=== PATIENT | female | born 1965 | race African-American/Black ===

== ENCOUNTER 2017-03-11 06:31 | Observation (INO) | payer OTHER ==
[~2017-03-11] VITALS: Ht 162.6 cm; Wt 94.0 kg
[~2017-03-11 06:31] MED LIST: ATOR10TA15 PO; BENA25CA4 PO; GABA400C5 PO; HYDR-3583 PO; LISI-519 PO; MORP60TA24 PO; MULTTAB67 PO; SOMA350T PO
[2017-03-11] MEDS ORDERED: VANCOMYCIN HCL 1000 MG ON-CALL/NS 250 ML IV SCH ×2 (07:15)
[2017-03-11] MEDS: SODIUM CHLOR 0.9% 1000 ML INJ 1,000 ML IV SCH (07:15)
[2017-03-11] MEDS ORDERED: MORP1TAB25 PO (07:23)
[2017-03-11 07:30] VITALS: BP 149/94; PULSE 75; RESP 16; TEMP 98; O2SAT 97
[2017-03-11] MEDS ORDERED: CHLORHEXIDINE GLUCONATE 2 % 1 PACK (2 CLOTHS) TOPICAL PRN (07:30)
[2017-03-11] MEDS ORDERED: SODIUM CHLORID 0.9% 500 ML IV PRN (07:30)
[2017-03-11] MEDS ORDERED: INSULIN HUMAN REGULAR 1,000 UNITS/10 ML VIAL SQ PRN (07:30)
[2017-03-11] MEDS ORDERED: POVIDONE IODINE 5% (ANTISEPSIS KIT) 4 APPLICATIONS EACH NARE PRN (07:30)
[2017-03-11] MEDS ORDERED: METOPROLOL TARTRATE 25 MG TAB PO PRN (07:30)
[2017-03-11] MEDS ORDERED: LACTATED RINGER'S 1000 ML IV PRN (07:30)
[2017-03-11] MEDS ORDERED: MICROFIBRILLAR COLLAGEN HEMOSTAT 70 X 35 MM BANDAGE ONE (07:57)
[2017-03-11] MEDS ORDERED: THROMBIN (TOPICAL) 5,000 UNIT VIAL ONE (07:58)
[2017-03-11] MEDS ORDERED: GELFOAM SIZE 100 ONE (07:58)
[2017-03-11] MEDS ORDERED: ceFAZolin 2 GM PREMIX 50 ML ONE (07:58)
[2017-03-11] MEDS ORDERED: GENTAMICIN SULFATE 80 MG/2 ML VIAL ONE (07:58)
[2017-03-11] MEDS ORDERED: ACETAMINOPHEN 1000 MG/100 ML VIAL IV ONE (08:11)
[2017-03-11] MEDS ORDERED: ARTIFICIAL TEARS OPTH OINT 3.5 APPLIC/3.5 GM TUBO ONE (08:11)
[2017-03-11] MEDS ORDERED: FAMOTIDINE 20 MG/2 ML VIAL ONE (08:11)
[2017-03-11] MEDS ORDERED: MIDAZOLAM HCL 2 MG/2 ML VIAL ONE (08:11)
[2017-03-11] MEDS ORDERED: fentaNYL CITRATE 250 MCG/5 ML AMP ONE ×2 (08:12→10:33)
[2017-03-11] MEDS: NS + KCL 20 MEQ INJ 1,000 ML IV SCH (11:24)
[2017-03-11] MEDS: DOCUSATE SODIUM 100 MG CAP PO SCH ×2 (11:30→21:21)
[2017-03-11] MEDS ORDERED: CYCLOBENZAPRINE HCL 10 MG TAB PO PRN (11:30)
[2017-03-11] MEDS ORDERED: ACETAMINOPHEN 325 MG TAB PO PRN (11:30)
[2017-03-11] MEDS ORDERED: ACETAMINOPHEN/HYDROcodone 325 MG/10 MG TAB PO PRN (11:30)
[2017-03-11] MEDS ORDERED: SODIUM CHLORIDE 0.9% FLUSH 5 ML FLUSH IVF PRN (11:30)
[2017-03-11] MEDS: PANTOPRAZOLE SOD 40 MG DELAYED RELEASE TAB PO SCH (11:30)
[2017-03-11] MEDS ORDERED: ONDANSETRON HCL 4 MG/2 ML VIAL IV PRN (11:30)
[2017-03-11] MEDS ORDERED: BISACODYL 10 MG SUPP RECTAL PRN (11:30)
[2017-03-11] MEDS: SODIUM CHLORIDE 0.9% FLUSH 5 ML FLUSH IVF SCH ×2 (11:30→21:00)
[2017-03-11] MEDS ORDERED: RESP: ALBUTEROL 2.5 MG/3 ML NEB (PRN) INH (11:30)
[2017-03-11] MEDS ORDERED: MENTHOL LOZENGE BUCCAL PRN (11:30)
[2017-03-11] MEDS ORDERED: cloNIDine HCL 0.1 MG TAB PO/NG PRN (11:30)
[2017-03-11] MEDS: DEXAMETHASONE SOD PHOS 4 MG/ML VIAL IV SCH ×3 (12:00→22:51)
[2017-03-11] MEDS ORDERED: HYDR-3583 PO (12:01)
--- NOTE | 2017-03-11 12:09 | RADRPT ---
EXAM DATE/TIME: 03/11/2017 08:55 [facility] COMPARISON: No previous studies available for comparison. INDICATIONS : Post-op C5-C6 diskectomy with artifical disk placement. MEDICAL HISTORY : None. SURGICAL HISTORY : None. ENCOUNTER: Initial ACUITY: 1 day PAIN SCORE: Non-responsive. LOCATION: neck FINDINGS: Two projection examination was performed. Intervertebral disc prostheses at C5-6. Hardware is intact paravertebral heights are maintained without fracture. BERNA type drain to the left of midline. CONCLUSION: Appropriate postoperative appearance of the cervical spine status post C5-6 disc prostheses. Arcadio Raymundo MD on March 11, 2017 at 11:55 Board Certified Radiologist. This report was verified electronically.
--- NOTE | 2017-03-11 12:09 | RADRPT ---
EXAM DATE/TIME: 03/11/2017 08:55 [facility] COMPARISON: No previous studies available for comparison. INDICATIONS : C5-C6 diskectomy with artifical disk placement. Level localization. MEDICAL HISTORY : None. SURGICAL HISTORY : None. ENCOUNTER: Initial ACUITY: 1 day PAIN SCORE: Non-responsive. LOCATION: neck FINDINGS: A single lateral view of the cervical spine was performed. Metallic localizer projects over the C5-6 disc interspace. Mild regional degenerative changes. No fracture. CONCLUSION: Metallic localizer at C5-6. Arcadio Raymundo MD on March 11, 2017 at 12:07 Board Certified Radiologist. This report was verified electronically.
[2017-03-11] MEDS ORDERED: DO NOT ADM ANY ANTICOAGULANT DRUGS PRN (12:15)
[2017-03-11] MEDS ORDERED: *HYDROmorphone PF 1 MG VIAL PERIprocedural Use ONLY ONE (12:28)
--- NOTE | 2017-03-11 12:35 | PD.OP ---
Operative Report Date of Surgery: Mar 11, 2017 Preoperative Diagnosis: C5 6 disc herniation Postoperative Diagnosis: C5 6 disc herniation Procedure: C5-6 anterior cervical discectomy and arthroplasty using Mobi C Anesthesia: general Surgeon: Eber Mahtis Ditch Repairer(s): Chio Rodney Operation and Findings: INDICATIONS FOR THE PROCEDURE Ms FISHMAN patient is a 51 year-old female who presented with intractable neck pain and a right C6 cervical radiculopathy. She was found to have a disc herniation at C5-6, causing significant mass effect on the nerve root. She has failed multiple modalities of nonsurgical treatment and has a very poor quality of life and her symptoms were affecting her quality of life. An anterior cervical discectomy and arthroplasty were indicated. The [id number] details of the surgical procedure, indications, alternatives, risks and potential complications were fully discussed with the patient. The patient fully understood. All her questions were answered. No guarantees were given. She voiced requesting the procedure and signed informed consents. She was offered the alternative of delaying the procedure and continuing with nonsurgical management. DETAILS OF THE SURGICAL PROCEDURE SURGICAL APPROACH A skin incision was made along the middle cervical crease with a #10 blade. The dissection was carried out through the platysma exposing the sternocleidomastoid muscle. The cervical spine was approached following the fascial layers of the neck, just medial to the anterior border of the sternocleidomastoid and carotid sheath by a combination of sharp and dull dissection. The omohyoid muscle was identified and carefully dissected laterally and the deep cervical fascia was carefully opened. The longus colli muscles were retracted to each side of the midline. A marker was placed at the C5-6 disc space and a cross-table lateral x-ray performed with a C-arm. An AP xray was then obtained as well, and the midline of the disk space was defined. SURGICAL DECOMPRESSION In order to decompress the anterior surface of the spinal cord it was necessary to perform a microsurgical resection of the disk. At this point in the procedure the operating microscope was draped in the usual sterile fashion and brought to the field. The rest of the surgical procedure was performed using microdissection technique with the exception of the closure. Under the operative microscopic a self-retaining retractor was placed underneath the longus colli muscle. The annulus at C5-6 was incised with a #15 blade and microdiscectomy was then carefully carried out using angled curets and pituitary forceps. The patient had a large disk extrusion which was producing mass affect on the exiting nerve root. This was carefully dissected with a nerve hock and resected with a think foot plate 2 mm Kerrison under high magnification. The posterior longitudinal ligament was then elevated with an angled curet and incised with a 15 bladed knife. A careful resection of the posterior longitudinal ligament was carried out using a thin footplate 2 mm Kerrison. Extruded disk fragments causing mechanical compression were carefully dissected. The decompression was then carried out laterally, and a bilateral foraminotomy was performed with a 2 mm thin foot Kerrison. The epidural space was the systematically assessed with a nerve hook in search for disk fragments of scar tissue. An excellent decompression was achieved in both, the dural sac and bilateral exiting nerve roots. The incision was then irrigated with a large amount of antibiotic solution INTERBODY ARTHROPLASTY In order to avoid collapse of the disk space which would result in bilateral foraminal stenosis, and in order to maintain disk space height and function, and decrease development of adjacent level degeneration, it was necessary to place an interbody device. At this point of the procedure, gentle distraction was applied. The size of the interbody device was then assessed using a trial, and a cross table xray was done for confirmation of appropriate size and position of the device. Then the disk space was irrigated with antibiotic solution, and a 15mm by 6mm Mobi C artificial disk was carefully impacted into the disc space C5-6. An excellent position of the device was achieved. This was confirmed anatomically by feeling the space posterior to the implant and distance to the anterior surface of the dural sac. Radiological confirmation of the position was performed with a cross table AP and lateral X-ray views, performed with the C-arm. COMPLETION OF THE SURGICAL PROCEDURE Once that each interbody device was in an appropriate position, the distraction was discontinued. The position of the device as well as alignment of the spine were assessed anatomically by direct visualization, and radiologically by performing an AP and lateral X-ray of the cervical spine with the C-arm. The position of the implant was excellent. The incision was irrigated with several liters of antibiotic solution. Hemostasis was achieved with a bipolar. A 7 mm Cy-Renteria drain was left in the prevertebral space and externalized through a separate stab incision. The incision was then closed in layers. 3-0 Vicryl with interrupted sutures was used to close the platysma and subcutaneous tissue. The skin was closed with 4- 0 running subcuticular Vicryl and Dermabond was applied to the skin. The drain was secured with a 3-0 nylon. At the end of the procedure the sponge, needle and instrument counts were all correct. The estimated blood loss was less than 40-50 cc. No blood transfusion was given. No intraoperative complications occurred. The patient received prophylactic antibiotics. The patient was then extubated and transferred to the recovery room in stable condition. Eber Mathis MD Mar 11, 2017 12:35
[2017-03-11] MEDS ORDERED: PROPOFOL 200 MG/20 ML AMP IV ONE (13:55)
[2017-03-11] MEDS ORDERED: ePHEDrine/NS 25 MG/5 ML SYR IV ONE (13:56)
[2017-03-11] MEDS ORDERED: PHENYLEPH/NS 1000 MCG/10 ML SYR IV ONE (13:56)
[2017-03-11] MEDS ORDERED: ONDANSETRON HCL 4 MG/2 ML VIAL IV PUSH ONE (13:56)
[2017-03-11] MEDS ORDERED: LACTATED RINGER'S 1000 ML INJ 2,000 ML IV ONE (13:56)
[2017-03-11 14:00] VITALS: BP 166/96; PULSE 85; RESP 16; TEMP 96.2; O2SAT 98
[2017-03-11] MEDS: GABAPENTIN 300 MG CAP PO SCH ×2 (14:03→18:24)
[2017-03-11] MEDS: diphenhydrAMINE HCL 25 MG CAP PO SCH ×2 (14:03→21:22)
[2017-03-11] MEDS: MORPHINE SULFATE 30 MG CONTROLLED RELEASE TAB PO SCH ×2 (14:03→21:22)
--- NOTE | 2017-03-11 15:27 | HHI.DCPOC ---
Discharge Care Plan Diagnosis: (1) Status post cervical arthrodesis Goals to Promote Your Health * To prevent worsening of your condition and complications * To maintain your health at the optimal level Directions to Meet Your Goals Take your medications as prescribed Follow your dietary instruction Follow activity as directed Keep your appointments as scheduled Take your immunizations and boosters as scheduled If your symptoms worsen call your PCP, if no PCP go to Urgent Care Center or Emergency Room Smoking is Dangerous to Your Health. Avoid second hand smoke Call the 24-hour hour crisis hotline for domestic abuse at Andra Gutierrez Mar 11, 2017 15:27
[2017-03-11 16:00] VITALS: BP 151/97; PULSE 99; RESP 16; TEMP 98.1; O2SAT 98
[2017-03-11] MEDS: CARISOPRODOL 350 MG TAB PO PRN ×2 (16:17→23:46)
[2017-03-11] MEDS: ceFAZolin 2 GM PREMIX 50 ML IV SCH (16:18)
[2017-03-11 18:42] VITALS: O2SAT 98
[2017-03-11 19:00] VITALS: BP 137/75; PULSE 104; RESP 18; TEMP 98; O2SAT 92
[2017-03-11] MEDS: ACETAMINOPHEN/HYDROcodone 325 MG/10 MG TAB PO PRN (22:51)
[2017-03-11 23:46] VITALS: BP 199/108; PULSE 93; RESP 16; TEMP 97.7; O2SAT 95
[2017-03-12] MEDS: ceFAZolin 2 GM PREMIX 50 ML IV SCH ×2 (00:12→08:39)
[2017-03-12] MEDS: HYDROmorphone HCL PF 1 MG/ML VIAL IV PRN ×2 (00:13→06:33)
[2017-03-12] MEDS ORDERED: HYDROmorphone HCL PF 2 MG/ML VIAL IV PRN (00:15)
[2017-03-12] MEDS: NS + KCL 20 MEQ INJ 1,000 ML IV SCH (01:42)
[2017-03-12 04:00] VITALS: BP 143/90; PULSE 91; RESP 15; TEMP 97.3; O2SAT 93
[2017-03-12] MEDS: diphenhydrAMINE HCL 25 MG CAP PO SCH ×2 (06:00→12:48)
[2017-03-12] MEDS: MORPHINE SULFATE 30 MG CONTROLLED RELEASE TAB PO SCH ×2 (06:00→12:48)
[2017-03-12] MEDS: DEXAMETHASONE SOD PHOS 4 MG/ML VIAL IV SCH ×2 (06:32→12:49)
[2017-03-12] MEDS: SODIUM CHLOR 0.9% 1000 ML INJ 1,000 ML IV SCH (07:15)
--- NOTE | 2017-03-12 07:40 | RADRPT ---
EXAM DATE/TIME: 03/12/2017 07:26 [facility] COMPARISON: [facility] ([facility]), March 11, 2017, 8:55. INDICATIONS : Neck pain after surgery yesterday. MEDICAL HISTORY : None. SURGICAL HISTORY : Disk replacement. ENCOUNTER: Subsequent ACUITY: 2 days PAIN SCORE: 10/10 LOCATION: Bilateral neck. FINDINGS: 3 views of the cervical spine. Postsurgical findings are identified at C5-6 with interbody hardware i n place. Anterior surgical drain. Alignment within normal limits. Endplate osteophytes and mild inter vertebral disc narrowing at C4-5. CONCLUSION: 1. Postoperative appearance at C5-6. 2. Bony degenerative findings at C4-5. Brian Langford MD on March 12, 2017 at 7:35 Board Certified Radiologist. This report was verified electronically.
[2017-03-12 08:00] VITALS: BP 130/75; PULSE 83; RESP 18; TEMP 96.7; O2SAT 94
[2017-03-12] MEDS: SODIUM CHLORIDE 0.9% FLUSH 5 ML FLUSH IVF SCH (08:39)
[2017-03-12] MEDS: PANTOPRAZOLE SOD 40 MG DELAYED RELEASE TAB PO SCH (08:41)
[2017-03-12] MEDS: ACETAMINOPHEN/HYDROcodone 325 MG/10 MG TAB PO PRN (08:41)
[2017-03-12] MEDS: GABAPENTIN 300 MG CAP PO SCH ×2 (08:41→12:48)
[2017-03-12] MEDS: DOCUSATE SODIUM 100 MG CAP PO SCH (08:41)
[2017-03-12] MEDS ORDERED: LISINOPRIL 5 MG TAB PO SCH (09:00)
[2017-03-12] MEDS ORDERED: ATORVASTATIN 10 MG TAB PO SCH (09:00)
[2017-03-12] MEDS ORDERED: MULTIVITAMIN TAB PO SCH (09:00)
[2017-03-12] MEDS ORDERED: SOMA350T PO (10:38)
[2017-03-12] MEDS ORDERED: KETOROLAC TROMETHAMINE 60 MG/2 ML (IM) VIAL IM ONE (11:45)
--- NOTE | 2017-03-12 11:45 | HHI.DS ---
Discharge Summary Admission Date Mar 11, 2017 at 11:26 Discharge Date: Mar 12, 2017 Admitting Diagnosis s/p ACD arthroplasty (1) Status post cervical arthrodesis ICD Code: Z98.1 Brief History Ms Vail is a 51 year-old female who presented with intractable neck pain and a right C6 cervical radiculopathy. She was found to have a disc herniation at C5-6, causing significant mass effect on the nerve root. She has failed multiple modalities of nonsurgical treatment and has a very poor quality of life and her symptoms were affecting her quality of life. An anterior cervical discectomy and arthroplasty were indicated. Imaging Last Impressions Cervical Spine X-Ray 03/12/17 0700 Signed Impressions: Service Date/Time: Tuesday, March 12, 2017 07:26 - CONCLUSION: 1. Postoperative appearance at C5-6. 2. Bony degenerative findings at C4-5. Brian Langford MD PE at Discharge Ms. Vail is alert, in no apparent distress. Speech is fluent. Incision is clean and dry, with dermabond intact. Cranial nerve examination: pupils equal, round and reactive to light. Facial motor are normal and symmetrical. Neck is immobilized by a [place] collar. Motor: moves all four extremities Hospital Course Ms. Vail underwent a C5-6 anterior cervical discectomy and arthroplasty using Mobi C on Mar 11, 2017. Her surgery well without complications. She was discharged home in stable conditions. Pt Condition on Discharge: Stable Discharge Disposition: Discharge Home Discharge Instructions DIET: Follow Instructions for: Heart Healthy Diet ACTIVITIES You can perform: Weight Bearing As William ADDITIONAL Activity Instructio: Avoid strenuous activities, heavy lifting, overhead activities, repetitive bending, twisting, pushing, pulling or any activities which might result in stress over the spine. Avoid situtation that will put at risk for falls. Use assistive device as needed for walking. Wear cervical collar at all times, may remove only with meals. New Medications: Hydrocodone-Acetaminophen (Hydrocodone-Acetaminophen) 10-325 mg Tab 1 TAB PO Q8HR PRN PAIN SCALE 1 TO 10 #90 Ref 0 TAB Continued Medications: Atorvastatin (Atorvastatin) 10 Mg Tab 10 MG PO DAILY Cholesterol Management #30 Ref 0 TAB Carisoprodol (Soma) 350 Mg Tab 350 MG PO QID PRN PAIN #90 Ref 0 TAB (This prescription has been renewed) Diphenhydramine HCl (Benadryl Allergy) 25 Mg Cap 1 TAB PO Q8HR PT TAKES WITH MORPHINE DOSE Gabapentin (Gabapentin) 400 Mg Cap 400 CAP PO TID #30 Ref 0 CAP Hydrocodone-Acetaminophen (Hydrocodone-Acetaminophen) 10-325 mg Tab 1 TAB PO Q6H PRN PAIN #30 Ref 0 TAB Lisinopril (Lisinopril) 5 Mg Tab 5 MG PO DAILY Blood Pressure Management #30 Ref 0 TAB Morphine ER (Morphine ER) 30 Mg Tab 30 MG PO Q8H Pain Management Ref 0 TAB Multiple Vitamin (Multiple Vitamin) 1 Tab 1 TAB PO DAILY Nutritional Supplement Ref 0 TAB Andra Gutierrez Mar 12, 2017 11:45
== END 2017-03-12 14:30 | disposition home or self-care (01) ==
LOC: HSDC 06:31 → INTOOBSV 11:26 → HSDI 11:26 → N06B 13:54 → UNDODISIN 03-12 14:30
PROVIDERS: ADMIT Neurological Surgery; ATTEND Neurological Surgery
DX: M50.122 Cervical disc disorder at C5-C6 level with radiculopathy (principal)
CPT/HCPCS: 00600; 22856; 63020; 72020; 72040; 76000; 94150; 96372; 96374; 96375; 96376; 97161; C1713; G0378; G8987; G8988; J0131; J0690; J1100; J1170; J1580; J1885; J2250; J2370; J2405; J3010; J3370; J3480; J7050; J7120; L0150; L0172

== ENCOUNTER 2017-04-22 15:53 | Emergency (ER) | payer OTHER ==
[~2017-04-22] VITALS: Ht 162.6 cm; Wt 100.0 kg
[~2017-04-22 15:53] MED LIST changes: +MORP1TAB25 PO; -MORP60TA24 PO
[2017-04-22 15:56] VITALS: BP 167/103; PULSE 95; RESP 20; TEMP 97.4; O2SAT 100
--- NOTE | 2017-04-22 17:39 | PD ---
HPI Chief Complaint: Musculoskeletal Complaint Time Seen by Provider: 17:30 Travel History International Travel<30 days: No Contact w/Intl Traveler<30days: No Traveled to known affect area: No History of Present Illness HPI The patient is a 51-year-old [place] female who presents to the emergency department for right arm and neck pain. The patient underwent surgery by Dr. Mtahis on March 11 and underwent a C5/6 anterior cervical discectomy and arthroplasty. The patient complains of increasing neck pain that radiates down the right arm over the course of last week history is progressively worsened today. She now notes weakness the right upper extremity secondary to intense pain. The pain starts in the mid to lower cervical area and radiates down the right arm. She also complains of right arm swelling, however, denies any redness over the affected area. She called her neurosurgeon today, Dr. Mathis, states that the office referred her to the emergency department at [facility]. She denies any lower extremity weakness, denies any urinary or fecal incontinence. Symptoms are moderate, progressive over the last week, and there are no current alleviating factors. PFSH Past Medical History Asthma: No Blood Disorders: No Anxiety: No Depression: No Heart Rhythm Problems: No Cancer: No Cardiovascular Problems: No High Cholesterol: No Chemotherapy: No Chest Pain: No Congestive Heart Failure: No COPD: No Diabetes: No Diminished Hearing: No Endocrine: No Genitourinary: No Hepatitis: No Hiatal Hernia: No Immune Disorder: No Musculoskeletal: Yes (NECK/ BACK TRAUMA, LEFT LEG/ FOOT PAIN) Neurologic: Yes (ERIKA. ARM/ HAND PAIN (CERVICAL TRAUMA HX)) Psychiatric: No Reproductive: Yes (MENORRHAGIA, UTERINE FIBROID) Respiratory: No Radiation Therapy: No Sleep Apnea: No Thyroid Disease: No Past Surgical History AICD: No Genitourinary Surgery: Yes (FIBROID REMOVAL WITH ABLATION) Gynecologic Surgery: Yes (HYSTEROSCOPY/ ENDOMETRIAL ABLATION, HYSTERECTOMY; ERIKA. SALPING.) Joint Replacement: No Pacemaker: No Other Surgery: Yes (hysterectomy, bso) Social History Alcohol Use: No Tobacco Use: No Substance Use: No Allergies-Medications (Allergen,Severity, Reaction): Coded Allergies: Morphine (Verified Allergy, Mild, ITCHING, 04/22/17) PT STS SHE CAN BE PREMEDICATED WITH BENADRYL Reported Meds & Prescriptions Reported Meds & Active Scripts Active Soma (Carisoprodol) 350 Mg Tab 350 Mg PO QID PRN Hydrocodone-Acetaminophen 10-325 mg Tab 1 Tab PO Q8HR PRN Reported Morphine ER (Morphine Sulfate) 30 Mg Tab 30 Mg PO Q8H Hydrocodone-Acetaminophen 10-325 mg Tab 1 Tab PO Q6H PRN Multiple Vitamin 1 Tab 1 Tab PO DAILY Atorvastatin (Atorvastatin Calcium) 10 Mg Tab 10 Mg PO DAILY Benadryl Allergy (Diphenhydramine HCl) 25 Mg Cap 1 Tab PO Q8HR PT TAKES WITH MORPHINE DOSE Lisinopril 5 Mg Tab 5 Mg PO DAILY Gabapentin 400 Mg Cap 400 Cap PO TID Review of Systems Except as stated in HPI: all other systems reviewed are Neg General / Constitutional: No: Fever HENT: Positive: Neck Pain Cardiovascular: No: Chest Pain or Discomfort Respiratory: No: Shortness of Breath Gastrointestinal: No: Nausea, Vomiting, Abdominal Pain Musculoskeletal: Positive: Weakness, Pain Neurologic: No: Paresthesia, Sensory Disturbance Physical Exam Narrative GENERAL: Awake, alert, tearful 51-year-old female who appears her stated age and is in no acute respiratory distress. SKIN: Focused skin assessment warm/dry. HEAD: Atraumatic. Normocephalic. EYES: Pupils equal and round. No scleral icterus. No injection or drainage. ENT: No nasal bleeding or discharge. Mucous membranes pink and moist. NECK: Trachea midline. No JVD. Tenderness of the midline cervical and right paracervical vertebral muscle. Tenderness of the right trapezius. CARDIOVASCULAR: Regular rate and rhythm. No murmur appreciated. RESPIRATORY: No accessory muscle use. Clear to auscultation. Breath sounds equal bilaterally. MUSCULOSKELETAL: No obvious deformities. No obvious edema the right upper extremity with compared to the left. Positive right radial pulse. Capillary refills less than 2 seconds. Diminished strength with flexion and extension of the elbow as well as flexion extension of the right wrist and intrinsic hand muscle secondary to pain. NEUROLOGICAL: Awake and alert. No obvious cranial nerve deficits. Motor grossly within normal limits. Normal speech. Sensation was intact to soft touch right upper extremity. PSYCHIATRIC: Tearful, secondary to pain. Data Data Last Documented VS Vital Signs Date Time Temp Pulse Resp B/P Pulse Ox O2 Delivery O2 Flow Rate FiO2 04/22/17 19:25 67 16 144/89 100 Room Air 04/22/17 15:56 97.4 Orders Complete Blood Count With Diff (04/22/17 17:43) Basic Metabolic Panel (Bmp) (04/22/17 17:43) Hydromorphone Pf Inj (Dilaudid Pf Inj) (04/22/17 17:45) Ondansetron Inj (Zofran Inj) (04/22/17 17:45) Ketorolac Inj (Toradol Inj) (04/22/17 17:45) Mri C Spine W&W/O Contrast (04/22/17 ) Gadodiamide Pf Inj (Omniscan Pf Inj) (04/22/17 19:01) Labs Laboratory Tests Test 04/22/17 17:45 White Blood Count 4.8 TH/MM3 Red Blood Count 4.72 MIL/MM3 Hemoglobin 13.6 GM/DL Hematocrit 40.5 % Mean Corpuscular Volume 85.9 FL Mean Corpuscular Hemoglobin 28.9 PG Mean Corpuscular Hemoglobin 33.7 % Concent Red Cell Distribution Width 14.2 % Platelet Count 177 TH/MM3 Mean Platelet Volume 9.6 FL Neutrophils (%) (Auto) 33.0 % Lymphocytes (%) (Auto) 53.6 % Monocytes (%) (Auto) 10.9 % Eosinophils (%) (Auto) 1.5 % Basophils (%) (Auto) 1.0 % Neutrophils # (Auto) 1.6 TH/MM3 Lymphocytes # (Auto) 2.6 TH/MM3 Monocytes # (Auto) 0.5 TH/MM3 Eosinophils # (Auto) 0.1 TH/MM3 Basophils # (Auto) 0.0 TH/MM3 CBC Comment DIFF FINAL Differential Comment Sodium Level 142 MEQ/L Potassium Level 3.6 MEQ/L Chloride Level 104 MEQ/L Carbon Dioxide Level 31.0 MEQ/L Anion Gap 7 MEQ/L Blood Urea Nitrogen 13 MG/DL Creatinine 0.93 MG/DL Estimat Glomerular Filtration 77 ML/MIN Rate Random Glucose 70 MG/DL Calcium Level 8.9 MG/DL [facility] Medical Decision Making Medical Screen Exam Complete: Yes Emergency Medical Condition: Yes Medical Record Reviewed: Yes Interpretation(s) Laboratory Tests Test 04/22/17 17:45 White Blood Count 4.8 TH/MM3 Red Blood Count 4.72 MIL/MM3 Hemoglobin 13.6 GM/DL Hematocrit 40.5 % Mean Corpuscular Volume 85.9 FL Mean Corpuscular Hemoglobin 28.9 PG Mean Corpuscular Hemoglobin 33.7 % Concent Red Cell Distribution Width 14.2 % Platelet Count 177 TH/MM3 Mean Platelet Volume 9.6 FL Neutrophils (%) (Auto) 33.0 % Lymphocytes (%) (Auto) 53.6 % Monocytes (%) (Auto) 10.9 % Eosinophils (%) (Auto) 1.5 % Basophils (%) (Auto) 1.0 % Neutrophils # (Auto) 1.6 TH/MM3 Lymphocytes # (Auto) 2.6 TH/MM3 Monocytes # (Auto) 0.5 TH/MM3 Eosinophils # (Auto) 0.1 TH/MM3 Basophils # (Auto) 0.0 TH/MM3 CBC Comment DIFF FINAL Differential Comment Sodium Level 142 MEQ/L Potassium Level 3.6 MEQ/L Chloride Level 104 MEQ/L Carbon Dioxide Level 31.0 MEQ/L Anion Gap 7 MEQ/L Blood Urea Nitrogen 13 MG/DL Creatinine 0.93 MG/DL Estimat Glomerular Filtration 77 ML/MIN Rate Random Glucose 70 MG/DL Calcium Level 8.9 MG/DL Differential Diagnosis Differential diagnosis includes cervical herniated disc, postoperative complication, hematoma, radiculopathy, neuralgia, DVT, RSD. Narrative Course IV was established, patient was placed on cardiac telemetry monitoring, continuous pulse oximetry monitoring, and the patient was administered Dilaudid , Toradol, and IV fluids. A call was placed to Dr. Mathis at 5:38 PM. I discussed the patient with Dr. Mathis at 5:55 PM who request MRI with and without contrast. Dr. Mathis evaluated the patient in the emergency department at 6:25 PM, states they called the on-call neurosurgeon, Dr. Victor, with results of the MRI when obtained. MRI with and without contrast reveals no acute findings. The patient has no obvious edema of the right upper extremity when compared to left, she has neck pain that radiates down into the arm. She is advised that if she has any redness or obvious swelling to the right upper extremity she may need an ultrasound, however, her pain radiates from the neck down into the arm and affect all 5 digits, doubt DVT. She will be provided a copy of her MRI at discharge is advised to follow-up with her primary physician. Diagnosis Primary Impression: Pain radiating to neck Additional Impression: Right upper limb pain Patient Instructions: General Instructions Additional Instructions: Please provide the patient a copy of her MRI results and lab results at discharge. Follow-up with Dr. Mathis on an outpatient setting. Return if symptoms worsen or progress. Med/Other Pt SpecificInfo: No Change to Meds Disposition: 01 DISCHARGE HOME Condition: Stable Dakota Hines MD Apr 22, 2017 17:38
[2017-04-22] MEDS ORDERED: ONDANSETRON HCL 4 MG/2 ML VIAL IV PUSH ONE (17:45)
[2017-04-22] MEDS ORDERED: KETOROLAC TROMETHAMINE 30 MG/ML (IVP) VIAL IV PUSH ONE (17:45)
[2017-04-22] MEDS ORDERED: HYDROmorphone HCL PF 1 MG/ML VIAL IV PUSH ONE (17:45)
[2017-04-22 18:12] LABS: AUTOMATED NEUTROPHIL # 1.6 TH/MM3 (1.8-7.7); EOSINOPHIL # 0.1 TH/MM3 (0-0.4); EOSINOPHIL % 1.5 % (0.0-4.0); HEMATOCRIT 40.5 % (35.0-46.0); HEMO FLAGS DIFF FINAL; LYMPH % 53.6 % (9.0-44.0); LYMPHOCYTE # 2.6 TH/MM3 (1.0-4.8); MEAN CELL VOLUME 85.9 FL (80.0-100.0); MEAN CORPUSCULAR HEMOGLOBIN 28.9 PG (27.0-34.0); MEAN CORPUSCULAR HGB CONC 33.7 % (32.0-36.0); MONO % 10.9 % (0.0-8.0); PLATELET COUNT 177 TH/MM3 (150-450); RED BLOOD COUNT 4.72 MIL/MM3 (4.00-5.30); RED CELL DISTRIBUTION WIDTH 14.2 % (11.6-17.2); WHITE BLOOD COUNT 4.8 TH/MM3 (4.0-11.0)
--- NOTE | 2017-04-22 18:23 | HHI.NSPN ---
Note Status Status: Progress Note Interval History Interval History reports neck pain with upper extremity radiculopathy Labs, Micro, & Vital Signs Results Date Time Temp Pulse Resp B/P Pulse Ox O2 Delivery O2 Flow Rate FiO2 04/22/17 15:56 97.4 95 20 167/103 100 Room Air Constitutional Vital Signs Date Time Temp Pulse Resp B/P Pulse Ox O2 Delivery O2 Flow Rate FiO2 04/22/17 15:56 97.4 95 20 167/103 100 Room Air Review of Systems/Exam Exam She is alert, awake and oriented to time, place and person. Speech is fluent. Higher cognitive functions are normal. Cranial nerve examination demonstrates the pupils to be equal, round, and reactive to light. Extra-ocular movements are intact. Facial motor and sensory function are normal and symmetrical. Gross hearing is intact, bilaterally. The uvula is midline and elevates symmetrically with the soft palate. Sternocleidomastoid and trapezius muscles have normal and symmetrical strength. Other cranial nerves are intact. Neck is soft and supple. Cervical spine has a full range of motion in anterior flexion, extension, lateral bending, and rotation without pain. There is no tenderness to palpation to the spinous processes or paraspinal muscles. Muscle testing reveals normal bulk and tone overall without rigidity, spasticity , fasciculations, or atrophy. Muscle strength is 5/5 in all muscle groups of both upper extremities including deltoid, biceps, triceps, brachioradialis, wrist extension and herb digger. In the lower extremities, strength is 5/5 in both iliopsoas, quadriceps, hamstrings, plantar flexion, dorsiflexion, and extensor hallicus longus. Sensory examination is intact to light touch and sharp/dull discrimination in both the upper and lower extremities, symmetrically. Deep tendon reflexes are 2+ and symmetrical in the biceps, triceps, and brachioradialis, bilaterally, in the upper extremities. In the lower extremities , the patellar and Achilles are 2+, bilaterally. There is a bilateral plantar flexion response. Hoffmanns sign is negative. There is no clonus or other abnormal reflexes noted. Cerebellar examination is intact to [id number] test, rapid rhythmic alternating motion. There is no dysmetria, dysdiadochokinesia, truncal ataxia, or tremor. Medications Current Medications Current Medications Hydromorphone HCl (Dilaudid Pf Inj) 1 mg ONCE ONCE IV PUSH Last administered on 04/22/17 18:35; Start 04/22/17 at 17:45; Stop 04/22/17 at 17:46; Status DC Ondansetron HCl (Zofran Inj) 4 mg ONCE ONCE IV PUSH Last administered on 18:36; Start 04/22/17 at 17:45; Stop 04/22/17 at 17:46; Status DC Ketorolac Tromethamine (Toradol Inj) 30 mg ONCE ONCE IV PUSH Last administered on 04/22/17 18:35; Start 04/22/17 at 17:45; Stop 04/22/17 at 17:46 ; Status DC Attending Statement Recommend MRI cervical spine Pulmonary. aggressive pulmonary toilette, nasotracheal suction, and breathing treatments with nebulizers. PT and OT evaluation Nutrition. Oral diet Renal. Gentle IV fluid resuscitation Avoid nephrotoxins, monitor closely urine output, BUN and creatinine Endocrine. Monitor serial Acu checks and SSI as needed in detail ID monitor for signs of infection Protonix for stress ulcer prophylaxis Karthik hossasha and SCD's for DVT prophylaxis Eber Mathis MD Apr 22, 2017 18:22
[2017-04-22 18:30] LABS: POTASSIUM 3.6 MEQ/L (3.5-5.1)
[2017-04-22] MEDS ORDERED: GADODIAMIDE PF 287 MG/ML 20 ML VIAL (for RAD MRI) IV ONE (19:01)
[2017-04-22 19:25] VITALS: BP 144/89; PULSE 67; RESP 16; O2SAT 100
--- NOTE | 2017-04-22 19:33 | RADRPT ---
EXAM DATE/TIME: 04/22/2017 18:36 [facility] COMPARISON: SPINE CERVICAL LTD (AP&LAT), March 12, 2017, 7:26. CT CERVICAL SPINE W/O CONTRAST, March 28, 2016, 8:4 0. INDICATIONS : Neck pain CONTRAST: 20 cc Omniscan (gadodiamide) IV MEDICAL HISTORY : Anemia. SURGICAL HISTORY : Discectomy, cervical. Hysterectomy. ENCOUNTER: Initial ACUITY: 1 day PAIN SCORE: 5/10 LOCATION: Paraspinal TECHNIQUE: Multiplanar, multisequence MRI examination of the cervical spine was performed. FINDINGS: VERTEBRAE: Normal vertebral body height. Homogeneous marrow signal. ALIGNMENT: No evidence of subluxation. CORD: Normal configuration and signal. POST FOSSA: The cerebellar tonsils are normal in position. POST-CONTRAST: No abnormal areas of enhancement are seen. C2-C3: The disc is desiccated but otherwise within normal limits. No foraminal or spinal stenosis. C3-C4: The disc is desiccated and has slight loss of height. There is mild uncovertebral and facet osteoarth ritis, mainly on the right. There is mild right foraminal encroachment. C4-C5: The disc is desiccated and has mild loss of height. There is a small, broad posterior disc osteophyte complex and mild bilateral uncovertebral and facet osteoarthritis. There is mild spinal stenosis and moderate bilateral foraminal stenosis. No cord compression or cord signal abnormality. C5-C6: Previous disc replacement. There is magnetic susceptibility artifact seen. No recurrent or residual f oraminal or spinal stenosis demonstrated. C6-C7: The disc is desiccated and has mild loss of height. There is mild bilateral uncovertebral and facet o steoarthritis. No significant foraminal or spinal stenosis. C7-T1: The thecal sac has a normal configuration. There is no evidence of disc herniation or spinal canal s tenosis. The neural foramina are patent bilaterally. CONCLUSION: No fracture, subluxation or other acute cervical spine abnormality. Recent disc replacement at C5/C6 without evidence of an acute complication. Degenerative changes as above. No high-grade foraminal or spinal stenosis demonstrated. Fili Philip MD on April 22, 2017 at 19:27 Board Certified Radiologist. This report was verified electronically.
[2017-04-22] MEDS ORDERED: IBUP-232 PO (20:37)
== END 2017-04-22 21:13 | disposition home or self-care (01) ==
LOC: NEPD 15:53
DX: M54.2 Cervicalgia (principal); M79.601 Pain in right arm; Z87.39 Personal history of other diseases of the musculoskeletal system and connective tissue; Z86.69 Personal history of other diseases of the nervous system and sense organs; Z87.42 Personal history of other diseases of the female genital tract
CPT/HCPCS: 72156; 80048; 85025; 96374; 96375; 99285; A9579; J1170; J1885; J2405

== ENCOUNTER 2017-06-02 18:44 | Emergency (ER) | payer OTHER ==
[~2017-06-02] VITALS: Ht 162.6 cm; Wt 92.2 kg
[~2017-06-02 18:44] MED LIST changes: +IBUP-232 PO
[2017-06-02 18:54] VITALS: BP 162/86; PULSE 87; RESP 16; TEMP 97.9
[2017-06-02 19:17] VITALS: BP 150/86; PULSE 77; RESP 20; O2SAT 97
[2017-06-02] MEDS ORDERED: FISHCAP4 PO (19:25)
[2017-06-02] MEDS ORDERED: FENT75DI T-DERMAL (19:25)
[2017-06-02] MEDS ORDERED: ONDANSETRON HCL 4 MG/2 ML VIAL IM ONE (19:45)
[2017-06-02] MEDS ORDERED: HYDROmorphone HCL PF 1 MG/ML VIAL IM ONE (19:45)
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
--- NOTE | 2017-06-02 20:26 | RADRPT ---
EXAM DATE/TIME: 06/02/2017 19:58 [facility] COMPARISON: No previous studies available for comparison. INDICATIONS : Right arm pain. MEDICAL HISTORY : Hypertension. Hypercholesterolemia. Anemia. Allergic rhinitis. SURGICAL HISTORY : Hysterectomy. Oophrectomy. ENCOUNTER: Initial ACUITY: 4 - 6 days PAIN SCORE: 10/10 LOCATION: Right arm. FINDINGS: There is spontaneous flow documented in the brachial, basilic, cephalic, axillary, and subclavian vei ns. The vessels are compressible and augmentation response is documented. No filling defects are se en. The flow is phasic with respiration. Direction of flow in the jugular vein is caudal. CONCLUSION: No DVT or superficial venous thrombosis in the right upper extremity veins. Fili Cao MD on June 02, 2017 at 20:24 Board Certified Radiologist. This report was verified electronically.
[2017-06-02 20:30] VITALS: BP 140/74; PULSE 82; RESP 17; TEMP 98.2; O2SAT 99
[2017-07-11] MEDS ORDERED: IBUP-232 PO (11:28)
== END 2017-06-02 21:49 | disposition home or self-care (01) ==
LOC: PHED 18:44
DX: M79.601 Pain in right arm (principal); M54.12 Radiculopathy, cervical region; I10 Essential (primary) hypertension; Z98.890 Other specified postprocedural states
CPT/HCPCS: 93971; 96372; 99285; J1170; J2405

== ENCOUNTER 2017-07-28 21:59 | Emergency (ER) | payer OTHER ==
[~2017-07-28] VITALS: Ht 165.1 cm; Wt 94.5 kg
[~2017-07-28 21:59] MED LIST changes: +FENT75DI T-DERMAL; +FISHCAP4 PO
[2017-07-28 22:15] VITALS: BP 180/90; PULSE 92; RESP 18; TEMP 97.7; O2SAT 99
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
[2017-07-29] MEDS ORDERED: LORazepam 2 MG/ML VIAL IV PUSH ONE
[2017-07-29] MEDS ORDERED: ORPHENADRINE INJ 60 MG/2 ML AMP IM ONE
[2017-07-29 00:05] VITALS: BP 153/99; PULSE 75; RESP 18; O2SAT 97
[2017-07-29 00:51] LABS: AUTOMATED NEUTROPHIL # 1.1 TH/MM3 (1.8-7.7); BASOPHIL % 1.1 % (0.0-2.0); EOSINOPHIL # 0.1 TH/MM3 (0-0.4); EOSINOPHIL % 2.5 % (0.0-4.0); HEMATOCRIT 39.7 % (35.0-46.0); HEMO FLAGS DIFF FINAL; LYMPH % 55.7 % (9.0-44.0); LYMPHOCYTE # 2.1 TH/MM3 (1.0-4.8); MEAN CELL VOLUME 86.2 FL (80.0-100.0); MEAN CORPUSCULAR HEMOGLOBIN 28.8 PG (27.0-34.0); MEAN CORPUSCULAR HGB CONC 33.4 % (32.0-36.0); MONO % 9.4 % (0.0-8.0); NEUT % 31.3 % (16.0-70.0); PLATELET COUNT 202 TH/MM3 (150-450); RED BLOOD COUNT 4.61 MIL/MM3 (4.00-5.30); RED CELL DISTRIBUTION WIDTH 13.4 % (11.6-17.2); WHITE BLOOD COUNT 3.6 TH/MM3 (4.0-11.0)
[2017-07-29 00:59] LABS: POTASSIUM 3.7 MEQ/L (3.5-5.1)
[2017-07-29 01:00] VITALS: BP 139/83; PULSE 80; RESP 16; O2SAT 98
[2017-07-29 01:02] LABS: BICARBONATE 29.8 MEQ/L (21.0-32.0)
[2017-07-29 01:45] VITALS: BP 133/74
== END 2017-07-29 01:53 | disposition home or self-care (01) ==
LOC: PHED 21:59
DX: M62.838 Other muscle spasm (principal); I10 Essential (primary) hypertension
CPT/HCPCS: 80048; 85025; 96372; 96374; 99284; J2060; J2360

== ENCOUNTER 2017-09-14 14:02 | Emergency (ER) | payer OTHER ==
[~2017-09-14 14:02] MED LIST changes: -MORP1TAB25 PO
[2017-09-14 14:05] VITALS: BP 170/73; PULSE 84; RESP 20; TEMP 98.1; O2SAT 97
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
[2017-09-14] MEDS ORDERED: ACETAMINOPHEN/HYDROcodone 325 MG/7.5 MG TAB PO ONE (14:30)
[2017-09-14] MEDS ORDERED: diphenhydrAMINE HCL 25 MG CAP PO ONE (14:30)
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
[2017-09-14] MEDS ORDERED: ORPHENADRINE INJ 60 MG/2 ML AMP IM ONE (16:00)
[2017-09-14] MEDS ORDERED: KETOROLAC TROMETHAMINE 60 MG/2 ML (IM) VIAL IM ONE (16:00)
== END 2017-09-14 17:20 | disposition home or self-care (01) ==
LOC: PHEFT 14:02
DX: S39.012A Strain of muscle, fascia and tendon of lower back, initial encounter (principal); S13.4XXA Sprain of ligaments of cervical spine, initial encounter; S70.02XA Contusion of left hip, initial encounter; I10 Essential (primary) hypertension; V49.49XA Driver injured in collision with other motor vehicles in traffic accident, initial encounter
CPT/HCPCS: 70450; 72072; 72100; 72125; 73030; 73502; 96372; 99285; J1885; J2360